=== PATIENT | male | born 1950 | race Caucasian/White ===

== ENCOUNTER 2018-02-15 16:02 | Emergency (ER) | payer OTHER ==
--- NOTE | 2018-02-15 16:27 | EDPHY ---
H & P Stated Complaint: Sent from PCP L lower leg r/o "deep infection" injury wound 1 week ago Time Seen by Provider: 02/15/18 16:27 HPI/ROS: HPI CHIEF COMPLAINT: Left leg pain, swelling, redness HISTORY OF PRESENT ILLNESS: Patient very pleasant 67-year-old male, presents emergency room with left leg pain, swelling, redness increasing since falling on this wall rock climbing a week ago. He was seen [facility] multiple times and just started on Keflex yesterday however he states the pain increased today he went there was referred to the emergency room for further evaluation of this.. Patient now presents emergency room with left leg swelling, pain, ecchymosis, and down the mid anterior left fletcher there is an area of excoriation, mild redness, no severiano pus it is tender. There is surrounding ecchymosis. The calf is full. There is no evidence of compartment syndrome. Past Medical History: Enlarged prostate Past Surgical History: Denies recent surgery Social History: Denies drugs alcohol tobacco. Family History: Noncontributory ROS REVIEW OF SYSTEMS: A comprehensive 10 point review of systems is otherwise negative aside from elements mentioned in the history of present illness. Exam Constitutional pre appears well nontoxic triage nursing summary reviewed, vital signs reviewed, awake/alert. Eyes normal conjunctivae and sclera, EOMI, PERRLA. HENT normal inspection, atraumatic, moist mucus membranes, no epistaxis, neck supple/ no meningismus, no raccoon eyes. Respiratory clear to auscultation bilaterally, normal breath sounds, no respiratory distress, no wheezing. Cardiovascular rate normal, regular rhythm, no murmur, no edema, distal pulses normal. Gastrointestinal soft, non-tender, no rebound, no guarding, normal bowel sounds, no distension, no pulsatile mass. Genitourinary no CVA tenderness. Musculoskeletal left lower extremity: Ecchymosis noted with yellowing comma down the anterior left tibia there is an abrasion present, excoriated area, some mild being mild erythema, distally neurovascular intact good distal pulse, good cap refill. There is no evidence of compartment syndrome. no midline vertebral tenderness, full range of motion, no calf swelling, no tenderness of extremities, no meningismus, good pulses, neurovascularly intact. Skin pink, warm, & dry, no rash, skin atraumatic. Neurologic awake, alert and oriented x 3, AAOx3, moves all 4 extremities equally, motor intact, sensory intact, CN II-XII intact, normal cerebellar, normal vision, normal speech. Psychiatric normal mood/affect. Heme/Lymph/Immune no lymphadenopathy. Differential Diagnosis: Includes but is not limited to in a particular order soft tissue injury, bony fracture, infection, deep space infection, DVT Medical Decision Making: Plan for this patient x-ray left tib-fib, basic blood work, ultrasound of the left lower extremity rule out DVT, may need to proceed with CT scan of the lower extremity rule out deeper infection. Re-evaluation: Ultrasound the left lower extremity shows no evidence of DVT. Called to me by Dr. Hamlin 2027: Patient's ultrasound reviewed shows no evidence of DVT. I did review the patient's blood work there is no high white count. Inflammatory markers are not elevated. CT scan with IV contrast of left lower extremity shows some inflammation but no deep space abscess. Some very mild cellulitis. Discussed options with the patient about being admitted versus going home. Patient would like to go home. He will receive Ancef 2 g here in emergency room 1st. He is already on Keflex as of yesterday by his primary care doctor encouraged him to continue this. Additionally I recommend he keep his leg elevated, compression stocking, anti- inflammatory pain medicine antibiotics as prescribed. Additionally he understands return to the emergency room if develops worsening leg pain, swelling, redness or signs of infection Strict return precautions discussed with the understands and is comfortable this plan. Again I did offer admission for observation overnight however he has declined. Compartments are soft. No evidence of compartment syndrome. Return precautions discussed and he understands. Source: Patient - Personal History Current Tetanus/Diphtheria Vaccine: Yes Current Tetanus Diphtheria and Acellular Pertussis (TDAP): Yes Tetanus Vaccine Date: 2014 - Medical/Surgical History Hx Asthma: No Hx Chronic Respiratory Disease: No Hx Diabetes: No Hx Cardiac Disease: No Hx Renal Disease: No Hx Cirrhosis: No Hx Alcoholism: No Hx HIV/AIDS: No Hx Splenectomy or Spleen Trauma: No Other PMH: denies - Social History Smoking Status: Never smoked Constitutional: Initial Vital Signs Temperature (C) 36.5 C 02/15/18 16:20 Heart Rate 88 02/15/18 16:20 Respiratory Rate 16 02/15/18 16:20 Blood Pressure 146/103 H 02/15/18 16:20 O2 Sat (%) 97 02/15/18 16:20 O2 Delivery Mode Room Air Allergies/Adverse Reactions: No Known Allergies Allergy (Unverified 02/15/18 16:19) Home Medications: Medication Instructions Recorded Finasteride 02/15/18 Hydrocodone/APAP 5/325 [Adel 1 - 2 tab PO Q4H PRN #10 tab 02/15/18 5/325] Ibuprofen [Motrin (*)] 800 mg PO Q6-8PRN #10 tab 02/15/18 Proscar 5 MG (*) 02/15/18 Medical Decision Making - Diagnostics Imaging Results: Imaging Impressions Extremity Venous Study 02/15/18 16:33 Impression: No evidence of deep vein thrombosis. Findings discussed with Octavio Don MD 02/15/2018 at 17:08. Tibia/Fibula X-Ray 02/15/18 16:33 Impression: Custer pretibial soft tissue swelling. No evidence for underlying osteomyelitis. Extremity CT 02/15/18 17:09 Impression: 1. Soft tissue contusion along the anterior aspect of the proximal third left tibia. 2. Soft tissue edema/cellulitis proximal to mid third left leg anteriorly without evidence of underlying abscess collection. 3. Old healed fracture distal shaft left tibia. - Data Points Laboratory Results: Laboratory Results 02/15/18 16:50 02/15/18 16:50 02/15/18 02/15/18 16:50 16:50 WBC 5.77 10^3/uL 10^3/uL (3.80-9.50) RBC 5.15 10^6/uL 10^6/uL (4.40-6.38) Hgb 15.7 g/dL g/dL (13.7-17.5) Hct 45.4 % % (40.0-51.0) MCV 88.2 fL fL (81.5-99.8) MCH 30.5 pg pg (27.9-34.1) MCHC 34.6 g/dL g/dL (32.4-36.7) RDW 12.4 % % (11.5-15.2) Plt Count 182 10^3/uL 10^3/uL (150-400) MPV 9.4 fL fL (8.7-11.7) Neut % (Auto) 64.5 % % (39.3-74.2) Lymph % (Auto) 27.7 % % (15.0-45.0) Callahan % (Auto) 6.4 % % (4.5-13.0) Eos % (Auto) 0.9 % % (0.6-7.6) Baso % (Auto) 0.2 % L % (0.3-1.7) Nucleat RBC Rel Count 0.0 % % (0.0-0.2) Absolute Neuts (auto) 3.72 10^3/uL 10^3/uL (1.70-6.50) Absolute Lymphs (auto) 1.60 10^3/uL 10^3/uL (1.00-3.00) Absolute Monos (auto) 0.37 10^3/uL 10^3/uL (0.30-0.80) Absolute Eos (auto) 0.05 10^3/uL 10^3/uL (0.03-0.40) Absolute Basos (auto) 0.01 10^3/uL L 10^3/uL (0.02-0.10) Absolute Nucleated RBC 0.00 10^3/uL 10^3/uL (0-0.01) Immature Gran % 0.3 % % (0.0-1.1) Immature Gran # 0.02 10^3/uL 10^3/uL (0.00-0.10) ESR 6 MM/HR MM/HR (0-20) Sodium 138 mEq/L mEq/L (135-145) Potassium 4.3 mEq/L mEq/L (3.5-5.2) Chloride 101 mEq/L mEq/L (97-110) Carbon Dioxide 24 mEq/l mEq/l (22-31) Anion Gap 13 mEq/L mEq/L (8-16) BUN 18 mg/dL mg/dL (7-23) Creatinine 1.2 mg/dL mg/dL (0.7-1.3) Estimated GFR > 60 Glucose 85 mg/dL mg/dL (70-100) Calcium 9.0 mg/dL mg/dL (8.5-10.4) C-Reactive Protein < 5.0 mg/L mg/L (<10.0) Departure - Departure Disposition: Home, Routine, Self-Care Clinical Impression: Cellulitis Qualifiers: Site of cellulitis: extremity Site of cellulitis of extremity: lower extremity Laterality: left Qualified Code(s): L03.116 - Cellulitis of left lower limb Condition: Good Instructions: Cellulitis (ED) Additional Instructions: 1. Return emergency room if you have worsening leg swelling, pain, redness or drainage. 2. Please take antibiotics as prescribed. Do not miss any doses. 3. Keep her leg elevated as much as possible. 4. Return if your wound appears to be getting worse this includes worsening redness, pain, swelling. Referrals: LUIS MADDOX [Primary Care Provider] - As per Instructions Prescriptions: Hydrocodone/APAP 5/325 [Adel 5/325] 1 - 2 tab PO Q4H PRN #10 tab PRN Reason: Pain, Moderate Ibuprofen [Motrin (*)] 800 mg PO Q6-8PRN #10 tab
[2018-02-15 16:59] LABS: PLATELET COUNT 182 10^3/uL (150-400)
[2018-02-15] MEDS ORDERED: IOPAMIDOL (ISOVUE-300) 100 ML BTL ONE (17:26)
[2018-02-15] MEDS ORDERED: ceFAZolin 2 GM/DEXTROSE 100 ML IV ONE (20:16)
[2018-02-15] MEDS ORDERED: ceFAZolin 2 GM/SWFI 2 GM/20 ML SYR IVP ONE (20:30)
[2018-02-15 20:48] VITALS: BP 132/77
== END 2018-02-15 20:47 | disposition home or self-care (01) ==
DX: L03.116 Cellulitis of left lower limb (principal)
CPT/HCPCS: 96374; J0690; Q9967

== ENCOUNTER → 2018-08-22 | Outpatient (CLI) | payer OTHER | LOC: FIMAGING 14:20 | PROVIDERS: ATTEND Physician Assistant | DX: M79.672 Pain in left foot (principal); Z13.820 Encounter for screening for osteoporosis; M85.88 Other specified disorders of bone density and structure, other site ==